=== PATIENT | female | born 1990 | race American Indian/Alaskan Native ===

== ENCOUNTER 2018-09-12 02:10 | Emergency (ER) | payer OTHER, MEDICAID ==
[2018-09-12 02:18] VITALS: BP 119/75
[2018-09-12 03:02] LABS: Bacteria,Urine 1+ /HPF (Negative); Bilirubin,Urine NEG (Negative); Blood,Urine LG (Negative); Color,Urine Yellow (Yellow); Mucus,Urine FEW /HPF; Protein,Urine <15 mg/dL mg/dL (Negative)
[2018-09-12 03:23] LABS: Basophils % (Auto) 0.1 % (0.0-1.8); Eosinophils % (Auto) 0.4 % (0.0-4.3); Hematocrit 39.3 % (30.3-42.9); Hemoglobin 13.2 gm/dl (10.1-14.3); Lymphocytes # (Auto) 1.1 K/mm3 (1.2-5.4); Lymphocytes % (Auto) 12.8 % (13.4-35.0); Mean Corpuscular HGB Conc 34 % (30-34); Mean Corpuscular Volume 86 fl (79-97); Monocytes # (Auto) 0.7 K/mm3 (0.0-0.8); Platelet Count 157 K/mm3 (140-440); Red Cell Distribution Width 12.9 % (13.2-15.2)
[2018-09-12 03:36] LABS: Alanine Aminotransferase 10 units/L (7-56); Albumin 3.8 g/dL (3.9-5); BUN/Creatinine Ratio 13; Blood Urea Nitrogen 12 mg/dL (7-17); Calcium 8.9 mg/dL (8.4-10.2); Hemolysis Index 12
[2018-09-12] MEDS ORDERED: XYLOCAINE 1% MPF 5 mL INFILTRATI ONE (03:51)
[2018-09-12] MEDS ORDERED: ROCEPHIN IM ONE (03:51)
[2018-09-12] MEDS ORDERED: ZOFRAN ODT PO ONE (03:51)
[2018-09-12] MEDS ORDERED: TORADOL IM ONE (03:51)
--- NOTE | 2018-09-12 05:20 | Emergency Department Report ---
ED Abdominal Pain HPI - General Chief Complaint: Abdominal Pain Stated Complaint: ABDOMINAL PAIN Source: patient Mode of arrival: Ambulatory Limitations: No Limitations - History of Present Illness Initial Comments: Patient is a [age]-year-old -[place] female with no past medical history presents to the ED with complaint of acute onset persistent severe diffuse lower abdominal pain with dysuria, urinary frequency and urgency, nausea, pelvic pressure and low back pain for the last 1 week. The patient denies fever, chills, vomiting, diarrhea, vaginal discharge, vaginal bleeding, dizziness, headache, chest pain, or dyspareunia. MD Complaint: abdominal pain, other (dysuria, urinary urgency and frequency) -: Sudden, week(s) (1) Location: suprapubic Radiation: none Migration to: no migration Severity: moderate Severity scale (0 -10): 4 Quality: cramping, aching, sharp Consistency: constant Improves With: nothing Worsens With: nothing Associated Symptoms: denies other symptoms, nausea. denies: vomiting, diarrhea, fever, constipation, dysuria, hematemesis, melena, hematuria, anorexia - Related Data LMP Date: 09/02/18 Previous Rx's Medication Instructions Recorded Last Taken Type Naproxen [Naprosyn TAB] 500 mg PO Q12H PRN #20 tablet 09/12/18 Unknown Rx Ondansetron [Zofran Odt] 4 mg PO Q6HR PRN #12 tab.rapdis 09/12/18 Unknown Rx Sulfamethoxazole/Trimethoprim 1 each PO Q12H #20 tablet 09/12/18 Unknown Rx [Bactrim DS TAB] Allergies Allergy/AdvReac Type Severity Reaction Status Date / Time No Known Allergies Allergy Unverified 09/12/18 02:20 ED Review of Systems ROS: Stated complaint: ABDOMINAL PAIN Other details as noted in HPI Constitutional: denies: chills, fever Eyes: denies: eye pain, eye discharge, vision change ENT: denies: ear pain, throat pain Respiratory: denies: cough, shortness of breath, wheezing Cardiovascular: denies: chest pain, palpitations Endocrine: no symptoms reported Gastrointestinal: abdominal pain, nausea. denies: diarrhea Genitourinary: urgency, dysuria, frequency. denies: discharge Musculoskeletal: denies: back pain, joint swelling, arthralgia Skin: denies: rash, lesions Neurological: denies: headache, weakness, paresthesias Psychiatric: denies: anxiety, depression Hematological/Lymphatic: denies: easy bleeding, easy bruising ED Past Medical Hx - Past Medical History Previous Medical History?: No - Surgical History Past Surgical History?: Yes Additional Surgical History: c sex X 1 - Social History Smoking Status: Former Smoker Substance Use Type: None - Medications Home Medications: Home Medications Medication Instructions Recorded Confirmed Last Taken Type Naproxen [Naprosyn TAB] 500 mg PO Q12H PRN #20 tablet 09/12/18 Unknown Rx Ondansetron [Zofran Odt] 4 mg PO Q6HR PRN #12 tab.rapdis 09/12/18 Unknown Rx Sulfamethoxazole/Trimethoprim 1 each PO Q12H #20 tablet 09/12/18 Unknown Rx [Bactrim DS TAB] ED Physical Exam - General Limitations: No Limitations General appearance: alert, in no apparent distress - Head Head exam: Present: atraumatic, normocephalic, normal inspection - Eye Eye exam: Present: normal appearance, PERRL, EOMI. Absent: scleral icterus Pupils: Present: normal accommodation - ENT ENT exam: Present: normal exam, normal orophraynx, mucous membranes moist, TM's normal bilaterally, normal external ear exam - Neck Neck exam: Present: normal inspection - Respiratory Respiratory exam: Present: normal lung sounds bilaterally. Absent: respiratory distress, wheezes, rales, chest wall tenderness, accessory muscle use - Cardiovascular Cardiovascular Exam: Present: normal rhythm, tachycardia, normal heart sounds. Absent: systolic murmur, diastolic murmur, rubs, gallop - GI/Abdominal GI/Abdominal exam: Present: soft, tenderness (mildly tender lower abdomen), normal bowel sounds. Absent: distended, guarding, rebound, hyperactive bowel s ounds, hypoactive bowel sounds - Rectal Rectal exam: Present: deferred - Bi-manual exam: Present: other (Pelvic exam offered but patient declined) - Extremities Exam Extremities exam: Present: normal inspection, full ROM, normal capillary refill - Back Exam Back exam: Present: normal inspection, full ROM, CVA tenderness (L). Absent: tenderness, CVA tenderness (R), muscle spasm, paraspinal tenderness - Neurological Exam Neurological exam: Present: alert, oriented X3, CN II-XII intact, normal gait, reflexes normal - Psychiatric Psychiatric exam: Present: normal affect, normal mood - Skin Skin exam: Present: warm, dry, intact, normal color. Absent: rash ED Course Vital Signs 09/12/18 02:17 Temperature 99.5 F Pulse Rate 108 H Respiratory 18 Rate Blood Pressure 119/75 O2 Sat by Pulse 100 Oximetry - Reevaluation(s) Reevaluation #1: 09/12/18 05:25 Patient is alert and oriented 3 and is not in distress with tachycardia in triage. Urinalysis shows significant urinary tract infection. There is a lab test results are unremarkable. Patient was treated in the ED with antibiotics and pain medication, and be sent home on pain medications and antibiotics and advised to follow-up with her primary care physician or [facility] physician in 7-10 days for reevaluation. Patient was advised to return to the emergency Department immediately if symptoms get worse. The patient's tachycardia resolved after treatment in the ED. 09/12/18 05:25 ED Medical Decision Making - Lab Data Result diagrams: 09/12/18 02:52 09/12/18 02:52 - Medical Decision Making Patient is alert and oriented 3 and is not in distress with tachycardia in triage. Urinalysis shows significant urinary tract infection. There is a lab test results are unremarkable. Patient was treated in the ED with antibiotics and pain medication, and be sent home on pain medications and antibiotics and advised to follow-up with her primary care physician or [facility] physician in 7-10 days for reevaluation. Patient was advised to return to the emergency Department immediately if symptoms get worse. The patient's tachycardia resolved after treatment in the ED. - Differential Diagnosis acute pelvic pain; abdominal pain, acute UTI, Acute PID Critical care attestation.: If time is entered above; I have spent that time in minutes in the direct care of this critically ill patient, excluding procedure time. ED Disposition Clinical Impression: Acute urinary tract infection Abdominal pain Qualifiers: Abdominal location: lower abdomen, unspecified Qualified Code(s): R10.30 - Lower abdominal pain, unspecified Disposition: DC-01 TO HOME OR SELFCARE Is pt being admited?: No Does the pt Need Aspirin: No Condition: Stable Instructions: Abdominal Pain (ED), Urinary Tract Infection in Women (ED) Additional Instructions: Take medications with food, drink plenty of fluids and follow-up with the primary care physician in 7-10 days for reevaluation. Return to the ED immediately if symptoms get worse. Prescriptions: Sulfamethoxazole/Trimethoprim [Bactrim DS TAB] 1 each PO Q12H #20 tablet Naproxen [Naprosyn TAB] 500 mg PO Q12H PRN #20 tablet PRN Reason: Pain , Severe (7-10) Ondansetron [Zofran Odt] 4 mg PO Q6HR PRN #12 tab.rapdis PRN Reason: Nausea Referrals: ADRIEL PETERSON MD [Primary Care Provider] - 3-5 Days Time of Disposition: 05:16 Print Language: DANISH
== END 2018-09-12 05:30 | disposition home or self-care (01) ==
LOC: ED 02:10
DX: N39.0 Urinary tract infection, site not specified (principal); Z79.899 Other long term (current) drug therapy
CPT/HCPCS: 36415; 80053; 81001; 84703; 85025; 87086; 96372; 99283; J0696; J1885; Q0162

== ENCOUNTER 2019-02-15 22:37 | Emergency (ER) | payer MEDICAID, OTHER ==
[2019-02-15 22:45] VITALS: BP 116/79
[2019-02-16 00:04] LABS: Bilirubin,Urine NEG (Negative); Blood,Urine NEG (Negative); Calcium Oxalate Crystals,Urine 2+; Color,Urine Yellow (Yellow); Mucus,Urine FEW /HPF; Protein,Urine <15 mg/dL mg/dL (Negative); WBC,Urine < 1.0 /HPF (0.0-6.0)
[2019-02-16 00:05] LABS: HCG Qualitative,Urine Negative (Negative)
[2019-02-16] MEDS ORDERED: AZITHROMYCIN 250 MG TAB PO ONE (04:07)
[2019-02-16] MEDS ORDERED: LIDOCAINE-MPF (1%) 10 MG/1 ML VIAL 5 ML INFILTRATI ONE (04:07)
--- NOTE | 2019-02-16 07:19 | Emergency Department Report ---
ED General Adult HPI - General Chief complaint: Chest Pain Stated complaint: ABDOMINAL CRAMPS, CHEST TIGHTNESS Source: patient Mode of arrival: Ambulatory Limitations: No Limitations - History of Present Illness Initial comments: Patient is a A0 28-year-old -[place] female who presented to the ED with complaint of acute onset persistent dysuria, urinary frequency and urgency, vaginal discharge, for the last 5 days. Patient states that she suspects that she may have been exposed to STD from her now ex-boyfriend that she broke up with a 1 week ago and who had multiple sexual partners. Patient denies fever, chills, nausea, vomiting, headache, vaginal bleeding, dizziness, diarrhea, dyspareunia, vaginal lesions or cough or sore throat. MD Complaint: Vaginal discharge; dysuria, exposed to STD -: Sudden, days(s) (5) Location: genitals (vaginal ) Radiation: non-radiation Severity scale (0 -10): 4 Quality: burning, aching Consistency: constant Improves with: none Worsens with: none Associated Symptoms: denies other symptoms. denies: confusion, chest pain, cough, diaphoresis, fever/chills, headaches, loss of appetite, malaise, nausea/vomiting, rash, seizure, shortness of breath, syncope, weakness, other Treatments Prior to Arrival: none - Related Data Previous Rx's Medication Instructions Recorded Last Taken Type Naproxen [Naprosyn TAB] 500 mg PO Q12H PRN #20 tablet 09/12/18 Unknown Rx Ondansetron [Zofran Odt] 4 mg PO Q6HR PRN #12 tab.rapdis 09/12/18 Unknown Rx Sulfamethoxazole/Trimethoprim 1 each PO Q12H #20 tablet 09/12/18 Unknown Rx [Bactrim DS TAB] Allergies Allergy/AdvReac Type Severity Reaction Status Date / Time No Known Allergies Allergy Unverified 09/12/18 02:20 ED Review of Systems ROS: Stated complaint: ABDOMINAL CRAMPS, CHEST TIGHTNESS Other details as noted in HPI Constitutional: denies: chills, fever Eyes: denies: eye pain, eye discharge, vision change ENT: denies: ear pain, throat pain Respiratory: denies: cough, shortness of breath, wheezing Cardiovascular: denies: chest pain, palpitations Endocrine: no symptoms reported Gastrointestinal: denies: abdominal pain, nausea, vomiting, diarrhea Genitourinary: urgency, dysuria, frequency, discharge Musculoskeletal: denies: back pain, joint swelling, arthralgia Skin: denies: rash, lesions Neurological: denies: headache, weakness, paresthesias Psychiatric: denies: anxiety, depression Hematological/Lymphatic: denies: easy bleeding, easy bruising ED Past Medical Hx - Past Medical History Previous Medical History?: No - Surgical History Past Surgical History?: Yes Additional Surgical History: c sex X 1 - Social History Smoking Status: Never Smoker Substance Use Type: None - Medications Home Medications: Home Medications Medication Instructions Recorded Confirmed Last Taken Type Naproxen [Naprosyn TAB] 500 mg PO Q12H PRN #20 tablet 09/12/18 Unknown Rx Ondansetron [Zofran Odt] 4 mg PO Q6HR PRN #12 tab.rapdis 09/12/18 Unknown Rx Sulfamethoxazole/Trimethoprim 1 each PO Q12H #20 tablet 09/12/18 Unknown Rx [Bactrim DS TAB] ED Physical Exam - General Limitations: No Limitations General appearance: alert, in no apparent distress - Head Head exam: Present: atraumatic, normocephalic, normal inspection - Eye Eye exam: Present: normal appearance, PERRL, EOMI Pupils: Present: normal accommodation - ENT ENT exam: Present: normal exam, normal orophraynx, mucous membranes moist, TM's normal bilaterally, normal external ear exam - Neck Neck exam: Present: normal inspection, full ROM - Respiratory Respiratory exam: Present: normal lung sounds bilaterally. Absent: respiratory distress, rales, chest wall tenderness, accessory muscle use, decreased breath sounds, prolonged expiratory - Cardiovascular Cardiovascular Exam: Present: regular rate, normal rhythm, normal heart sounds. Absent: systolic murmur, diastolic murmur, rubs, gallop - GI/Abdominal GI/Abdominal exam: Present: soft, normal bowel sounds. Absent: tenderness, guarding, rebound, hyperactive bowel sounds, hypoactive bowel sounds, organomegaly - Bi-manual exam: Present: other (patient declined pelvic exam, and eloped from the ED after receiving treatment) - Extremities Exam Extremities exam: Present: normal inspection, full ROM, normal capillary refill - Back Exam Back exam: Present: normal inspection, full ROM. Absent: muscle spasm, paraspinal tenderness - Neurological Exam Neurological exam: Present: alert, oriented X3, CN II-XII intact, normal gait, reflexes normal - Psychiatric Psychiatric exam: Present: normal affect, normal mood - Skin Skin exam: Present: warm, dry, intact, normal color. Absent: rash ED Course Vital Signs 02/15/19 22:42 Temperature 98.8 F Pulse Rate 90 Respiratory 18 Rate Blood Pressure 116/79 O2 Sat by Pulse 98 Oximetry ED Medical Decision Making - Medical Decision Making This is a 28-year-old female who presented to the ED with vaginal discharge, dysuria, urinary frequency and urgency for 5 days. Patient also stated that she may have been exposed to STD from her ex-boyfriend that she recently broke up with. In the ED, patient is alert and oriented 3 and is not in distress. Urinalysis is unremarkable. Patient was empirically treated for gonorrhea and chlamydia and prior to pelvic exam being performed, patient eloped from the ED. - Differential Diagnosis UTI; STD; PID; Bacterial vaginosis Critical care attestation.: If time is entered above; I have spent that time in minutes in the direct care of this critically ill patient, excluding procedure time. ED Disposition Clinical Impression: STD (sexually transmitted disease), Vaginal discharge Disposition: Z-07 ELOPED Is pt being admited?: No Does the pt Need Aspirin: No Condition: Stable Instructions: Sexually Transmitted Diseases (ED) Referrals: PRIMARY CARE, [Primary Care Provider] - 3-5 Days Time of Disposition: 05:40 Print Language: KHMER
== END 2019-02-16 08:11 | disposition left against medical advice (07) ==
LOC: ED 22:37
DX: A64 Unspecified sexually transmitted disease (principal); N89.8 Other specified noninflammatory disorders of vagina; Z79.899 Other long term (current) drug therapy
CPT/HCPCS: 81001; 81025; 93005; 93010; 96372; 99283; J0696